=== PATIENT | female | born 1965 | race Caucasian/White ===

== ENCOUNTER 2017-02-13 17:30 | Emergency (ER) | payer OTHER ==
[~2017-02-13] VITALS: Ht 157.5 cm; Wt 74.5 kg
[2017-02-13] MEDS ORDERED: IBUPROFEN 800 MG TABLET PO ONE (18:15)
[2017-02-13] MEDS ORDERED: ALPRAZolam 0.25 MG TABLET PO ONE (18:15)
[2017-02-13 18:30] VITALS: BP 128/88
== END 2017-02-13 18:57 | disposition home or self-care (01) ==
LOC: EMS 17:33
DX: R51 Headache (principal); F41.9 Anxiety disorder, unspecified; F43.9 Reaction to severe stress, unspecified
CPT/HCPCS: 99283